=== PATIENT | female | born 1960 | race Caucasian/White ===

== ENCOUNTER 2018-10-03 06:11 | Emergency (ER) | payer BC ==
[~2018-10-03] VITALS: Ht 175.3 cm; Wt 77.1 kg
[2018-10-03 07:23] VITALS: BP 118/79
== END 2018-10-03 08:20 | disposition home or self-care (01) ==
LOC: ER 06:13
DX: L03.113 Cellulitis of right upper limb (principal); Z85.3 Personal history of malignant neoplasm of breast; Z98.890 Other specified postprocedural states
CPT/HCPCS: 93971